=== PATIENT | male | born 1950 | race Caucasian/White ===

== ENCOUNTER → 2017-12-09 | Outpatient (CLI) | payer OTHER, MEDICARE | END | disposition home or self-care (01) | LOC: C.RDSM 15:21 | PROVIDERS: ATTEND Orthopaedic Surgery | DX: M25.572 Pain in left ankle and joints of left foot (principal) ==

== ENCOUNTER 2021-09-26 18:08 | Inpatient (IN) ==
--- NOTE | 2021-09-26 18:21 | ED Telehealth Note ---
Telehealth Telehealth Options: 2-way audio and video For the duration of the visit, provider was performing the assessment from: A different facility than the patient After establishing a telemedicine visit, patient was: Patient was verified with two unique identifiers and Gave permission to continue telehealth session Total Time Spent (minutes): 11 Impression & Plan Weakness, Slurred speech Note/Exam/Outcome Date of Service September 26, 2021 ED Telehealth Outcome Referred to ED for in person visit ED Visit Note Of note, I did not speak with or visualize the patient himself for this telehealth visit. I spoke with his Lisa who would like to discuss some of her concerns. She notes that this 71-year-old male patient with significant past medical history of hypertension, diabetes, gross disease has been taking cyclosporine for a rash, prescribed by his siebel developer. He has been lethargic and very fatigued for the past several days, but at 5 PM when he awoke from a nap this evening, the patient was having difficulty walking, falling backwards, difficulty with his balance and holding onto the wall. She got his cane and was able to assist him to the kitchen where she fed him some crackers due to his history of diabetes. She then got him to the recliner and he indicated that he wanted to go back to bed. He was having severe difficulty with the steps. At this time, she noted some slurred speech. She did take his vital signs and noted his O2 saturation to be 95% on room air, heart rate of 82 bpm, blood pressure 174 systolic, blood sugar 188. She does note that he had a fall 3 weeks ago while trying to get up from the couch to go to dinner. She found him lying on the floor. He did not strike his head at that time to her knowledge. He was contacted by dermatology yesterday with some labs indicating "severe low sodium". The patient was not evaluated at that time or referred for further management of the hyponatremia. I advised the patient's that I do recommend he come to the emergency department for further evaluation of his illness and management of the hyponatremia. I did recommend he come by ambulance due to safety concerns and the ability to start a work-up and have a medical evaluation completed somewhat sooner. The patient's agreed. She indicates she will contact the ambulance for transport to the emergency department. I did notify the charge nurse of this pending referral to the ED via EMS. Past Med/Surg History Medical History Diabetes Luis Miguel's disease Hypertension Social History Current Living Situation: Family Discharge Plan Visit Data Chief Complaint: Telehealth Stated Complaint: REDUCED BALANCE, LIGHT HEADED, NEW MEDS? ED Provider: IVAN,ED Discharge Problem: Weakness, Slurred speech Patient Disposition: Still a Patient Discharge Instructions Activity Restrictions/Additional Instructions: Call 911 and come to the ED for further evaluation of illness. Forms Stand Alone Forms: My [facility] Referrals Referrals: Richie Shanks, [Primary Care Provider] -
[2021-09-26] MEDS ORDERED: SODIUM CHLORIDE 0.9% 1000ML 500 ML IV ONE ×2 (20:50→21:22)
[2021-09-26 20:52] LABS: Basophils # (auto) 0.02 K/uL (0-0.2); Basophils % (auto) 0.3 %; Eosinophils % (auto) 1.4 %; Hematocrit (blood only) 38.9 % (42-52); Hemoglobin 14.3 g/dL (14.0-18.0); Immature Granulocytes # (auto) 0.02 K/uL (0.00-0.02); Immature Granulocytes % (auto) 0.3 %; Lymphocytes # (auto) 2.05 K/uL (1.2-3.4); Lymphocytes % (auto) 27.9 %; Mean Corpuscular Hemoglobin 35.8 pg (25-34); Mean Corpuscular Hgb Conc 36.8 g/dL (32-36); Mean Corpuscular Volume 97.3 fL (80-100); Mean Platelet Volume 7.7 fL (7.4-10.4); Monocytes # (auto) 0.86 K/uL (0.11-0.59); Monocytes % (auto) 11.7 %; Neutrophils # (auto) 4.31 K/uL (1.4-6.5); Neutrophils % (auto) 58.4 %; Platelet Count 262 K/uL (130-400); RDW Coefficient of Variation 11.9 % (11.5-14.5); RDW Standard Deviation 42.5 fL (36.4-46.3); White Blood Count 7.36 K/uL (4.8-10.8)
--- NOTE | 2021-09-26 20:54 | Emergency Department Note ---
Impression & Plan Weakness, Slurred speech, Acute hyponatremia, Confusion ED Provider Note NAME: ERIC BUSTOS AGE: 71 SEX: M : 1950 ARRIVES VIA: Walk-In INFORMANT: [Patient][] ED PROVIDER(S): [Herb Hernandez MD] CHIEF COMPLAINT: Dizziness, weakness HISTORY OF PRESENT ILLNESS: The patient is a 71-year-old male who has had a few months of worsening difficulty with balance. Today, things were quite a bit worse and he was slurring his words. He was having a hard time getting around. The patient had a telehealth visit here through the ED and was referred to the ED as a stroke work-up was felt warranted. The patient denies any fever. No cough or cold or congestion. No chest pain or abdominal pain. No one-sided weakness. He does urinate a lot but this is typical, no burning to urinate, no diarrhea, no vomiting. Patient denies any headache. He did start a cyclosporine a week ago but, otherwise, his meds have been the same. Of note, patient was told that his sodium was low, he is not sure how low but, he does not think this has been an issue for him before. REVIEW OF SYSTEMS: See HPI for pertinent positives and negatives. A total of ten systems were reviewed and were otherwise negative. PMHx/PSHx: See Below SOCIAL HISTORY: See Below. PHYSICAL EXAM: GENERAL: Patient is in no acute distress. HEENT: No acute trauma, normocephalic atraumatic, mucous membranes moist, no nasal congestion, no scleral icterus. NECK: No stridor, no adenopathy, no meningismus, trachea is midline. LUNGS: Clear to auscultation bilaterally, no wheeze, no rhonchi, breath sounds equal. HEART: Without murmurs gallops or rubs, regular rate and rhythm. ABDOMEN: Soft, nontender, bowel sounds positive, no hernias, no peritonitis. EXTREMITIES: No cyanosis, mild bilateral pedal edema, full range of motion of all the joints without pain or difficulty, no signs for acute trauma. NEUROLOGIC: Oriented x 3, no acute motor or sensory deficits, no focal weakness. Slightly slow to respond to questioning but does answer questions appropriately. No extremity drift or cerebellar dysfunction. No facial droop or speech slur. There is a little extremity tremor noted. SKIN: No rash, no jaundice, no diaphoresis. DIFFERENTIAL DIAGNOSIS: Infection, dehydration, metabolic abnormality, hypo/hyperglycemia, COVID-19, electrolyte disturbance, anemia, hypoxia, cardiac sources, intracerebral event, toxicologic issues, stroke, TIA, as well as other pathologies. EMERGENCY DEPARTMENT COURSE/PROCEDURES: ECG: Indication was weakness. The ECG shows a normal sinus rhythm with a rate of 83. There is a right bundle branch block seen. There is no ST elevation, no PVCs. The QTc is 462. Continuous Cardiac Monitoring: An order was placed for continuous cardiac monitoring. The monitor shows a rate of 92 with normal sinus rhythm. Critical Care Note: I have personally spent 47 minutes of critical care time in the direct management of this patient. This includes bedside care, interpretation of diagnostic studies, and testing, discussion with consultants, patient, and family members, and other required patient management activities. This 47 minutes is in excess of all separately billable procedures. MEDICAL DECISION MAKING: There is no leukocytosis or concerning anemia. There is a normal platelet count. No coagulopathy. Sodium was critically low at 119. No renal failure. Magnesium somewhat low at 1.6. No worrisome liver enzyme elevation. The patient appeared to be in a euthyroid state. Urinalysis does not show infection. Covid testing was negative. Chest film does not show pneumonia or CHF. Brain CT showed no acute bleed or mass-effect. CT angio of the head and neck were performed, there was no clot or stenosis. On my exam, the patient was a little bit slow to respond but there was no speech slur or focal neurologic deficit. The patient received IV saline, 1 L. He was given IV magnesium. I suspect the patient's weakness, lethargy, slurred speech is from his hyponatremia. The cause for the hyponatremia is not clear. Further work-up, further care in the hospital is warranted. I spoke with the patient and immigration case manager. The on-call hospitalist was consulted. Past Med/Surg History Medical History Diabetes Luis Miguel's disease Hypertension Social History Smoking Status: Current every day smoker Tobacco Type: Cigarettes Current Living Situation: Family Feels Safe at Home: Yes Home Meds Home Medications Medication Instructions Recorded Confirmed amlodipine 5 mg tablet 5 mg PO DAILY 09/26/21 09/26/21 cyclosporine modified 50 mg capsule 100 mg PO TID 09/26/21 09/26/21 hydrochlorothiazide 25 mg tablet 25 mg PO DAILY 09/26/21 09/26/21 losartan 100 mg tablet 100 mg PO DAILY 09/26/21 09/26/21 metformin 1,000 mg tablet 1,000 mg PO BID 09/26/21 09/26/21 triamcinolone acetonide 0.1 % 0.1 applic TOPICAL BID 09/26/21 09/26/21 topical cream Results & Data (ED) Vital Signs Vital Signs - 24 hr 09/26/21 18:58 09/26/21 20:02 09/26/21 22:00 Temperature 36.7 C Temperature Source Oral Pulse Rate 92 H Pulse Rate [Right Finger] 92 H 83 Pulse Rhythm [Right Finger] Regular Regular Pulse Strength [Right Finger] Normal Normal Respiratory Rate 18 18 16 Respiratory Effort / Characteristics Non-Labored Spontaneous Non-Labored Non-Labored Respiratory Depth Normal Normal Normal Respiratory Pattern Regular Regular Regular Blood Pressure 146/76 H Blood Pressure [Right Arm] 158/93 H 157/88 H Blood Pressure Mean 99 Blood Pressure Mean [Right Arm] 114 111 Blood Pressure Position Sitting Blood Pressure Position [Right Arm] Lying Lying Pulse Oximetry 98 97 97 Oxygen Delivery Method Room Air Room Air Room Air Sepsis Recent Fever Within 48 Hours No Sepsis New/Unexplained Change in Mental Status No Sepsis Action Taken by Nursing No Action Required Home Medications Current Medication List: was personally reviewed by me Laboratory Data Attestation: I reviewed the patient's lab results. Result diagrams: 09/26/21 20:40 09/26/21 20:40 Lab Results 09/26/21 09/26/21 09/26/21 Range/Units 20:40 20:40 20:40 WBC 7.36 (4.8-10.8) K/uL RBC 4.00 L (4.7-6.1) M/uL Hgb 14.3 (14.0-18.0) g/dL Hct 38.9 L (42-52) % MCV 97.3 (80-100) fL MCH 35.8 H (25-34) pg MCHC 36.8 H (32-36) g/dL RDW Std Deviation 42.5 (36.4-46.3) fL RDW Coeff of Scott 11.9 (11.5-14.5) % Plt Count 262 (130-400) K/uL MPV 7.7 (7.4-10.4) fL Immature Gran % (Auto) 0.3 % Neut % (Auto) 58.4 % Lymph % (Auto) 27.9 % Coffee % (Auto) 11.7 % Eos % (Auto) 1.4 % Baso % (Auto) 0.3 % Neut # (Auto) 4.31 (1.4-6.5) K/uL Lymph # (Auto) 2.05 (1.2-3.4) K/uL Coffee # (Auto) 0.86 H (0.11-0.59) K/uL Eos # (Auto) 0.10 (0-0.5) K/uL Baso # (Auto) 0.02 (0-0.2) K/uL Immature Gran # (Auto) 0.02 (0.00-0.02) K/uL PT 9.4 (9.0-12.0) Seconds INR 0.9 (0.9-1.1) APTT 27.3 (21.0-31.0) Seconds PTT Ratio 1.0 Sodium 119 L* (136-145) mmol/L Potassium 3.7 (3.5-5.1) mmol/L Chloride 84 L (98-107) mmol/L Carbon Dioxide 21 (21-32) mmol/L Anion Gap 14.0 H (3-11) BUN 8 (7-18) mg/dl Creatinine 0.67 (0.6-1.4) mg/dl Est Cr Clr Drug Dosing 122.0 ml/min Est GFR ( Amer) 111.3 ml/min Est GFR (Non-Af Amer) 96.0 ml/min BUN/Creatinine Ratio 11.8 (10-20) Glucose 134 H (70-99) mg/dl Calcium 8.6 (8.5-10.1) mg/dl Magnesium 1.6 L (1.8-2.4) mg/dl Total Bilirubin 0.8 (0.2-1) mg/dl AST 20 (15-37) U/L ALT 44 (12-78) U/L Alkaline Phosphatase 67 (45-117) U/L Troponin I < 0.015 (0-0.045) ng/ml Total Protein 8.0 (6.4-8.2) gm/dl Albumin 3.9 (3.4-5.0) gm/dl Globulin 4.1 H (2.5-4.0) gm/dl Albumin/Globulin Ratio 0.9 (0.9-2) TSH 0.554 (0.300-4.500) uIu/ml Urine Color Urine Appearance (Clear) Urine pH (4.5-7.5) Ur Specific Sagle (1.000-1.030) Urine Protein (Negative) Urine Glucose (UA) (Negative) Urine Ketones (Negative) Urine Blood (Negative) Urine Nitrite (Negative) Urine Bilirubin (Negative) Urine Urobilinogen (Negative) Ur Leukocyte Esterase (Negative) SARS-CoV-2, RNA, NAAT (NEGATIVE) Blood Type Antibody Screen 09/26/21 09/26/21 09/26/21 Range/Units 21:00 Unknown Unknown WBC (4.8-10.8) K/uL RBC (4.7-6.1) M/uL Hgb (14.0-18.0) g/dL Hct (42-52) % MCV (80-100) fL MCH (25-34) pg MCHC (32-36) g/dL RDW Std Deviation (36.4-46.3) fL RDW Coeff of Scott (11.5-14.5) % Plt Count (130-400) K/uL MPV (7.4-10.4) fL Immature Gran % (Auto) % Neut % (Auto) % Lymph % (Auto) % Coffee % (Auto) % Eos % (Auto) % Baso % (Auto) % Neut # (Auto) (1.4-6.5) K/uL Lymph # (Auto) (1.2-3.4) K/uL Coffee # (Auto) (0.11-0.59) K/uL Eos # (Auto) (0-0.5) K/uL Baso # (Auto) (0-0.2) K/uL Immature Gran # (Auto) (0.00-0.02) K/uL PT (9.0-12.0) Seconds INR (0.9-1.1) APTT (21.0-31.0) Seconds PTT Ratio Sodium (136-145) mmol/L Potassium (3.5-5.1) mmol/L Chloride (98-107) mmol/L Carbon Dioxide (21-32) mmol/L Anion Gap (3-11) BUN (7-18) mg/dl Creatinine (0.6-1.4) mg/dl Est Cr Clr Drug Dosing ml/min Est GFR ( Amer) ml/min Est GFR (Non-Af Amer) ml/min BUN/Creatinine Ratio (10-20) Glucose (70-99) mg/dl Calcium (8.5-10.1) mg/dl Magnesium (1.8-2.4) mg/dl Total Bilirubin (0.2-1) mg/dl AST (15-37) U/L ALT (12-78) U/L Alkaline Phosphatase (45-117) U/L Troponin I (0-0.045) ng/ml Total Protein (6.4-8.2) gm/dl Albumin (3.4-5.0) gm/dl Globulin (2.5-4.0) gm/dl Albumin/Globulin Ratio (0.9-2) TSH (0.300-4.500) uIu/ml Urine Color Yellow Urine Appearance Clear (Clear) Urine pH 7.0 (4.5-7.5) Ur Specific Sagle 1.014 (1.000-1.030) Urine Protein Negative (Negative) Urine Glucose (UA) Trace H (Negative) Urine Ketones Negative (Negative) Urine Blood Negative (Negative) Urine Nitrite Negative (Negative) Urine Bilirubin Negative (Negative) Urine Urobilinogen Negative (Negative) Ur Leukocyte Esterase Negative (Negative) SARS-CoV-2, RNA, NAAT NEGATIVE (NEGATIVE) Blood Type O Positive Antibody Screen NEGATIVE Administered Medications Discontinued Medications Sodium Chloride (Nss 1000ml) 500 mls @ 999 mls/hr IV .Q31M ONE Stop: 09/26/21 21:20 Last Infusion: 09/26/21 22:07 Dose: 0 mls/hr Documented by: [id number] Admin: 09/26/21 21:19 Dose: 999 mls/hr Documented by: [id number] Magnesium Sulfate/Dextrose (Magnesium Sulfate / D5w) 1 gm in 100 mls @ 100 mls/hr IV NOW STA Stop: 09/26/21 22:21 Last Admin: 09/26/21 22:20 Dose: 100 mls/hr Documented by: [id number] Sodium Chloride (Nss 1000ml) 500 mls @ 999 mls/hr IV .Q31M ONE Stop: 09/26/21 21:52 Last Infusion: 09/26/21 23:04 Dose: 0 mls/hr Documented by: [id number] Admin: 09/26/21 22:20 Dose: 999 mls/hr Documented by: [id number] Ioversol (Optiray 320 125ml) 119 ml IV ONCE ONE Stop: 09/26/21 21:45 Last Admin: 09/26/21 21:52 Dose: 119 ml Documented by: [id number] Imaging Data Radiologist's Impression: Chest X-Ray 09/26/21 19:02 XR chest 1V portable HISTORY: Stroke Like Symptoms COMPARISON: None. FINDINGS: No focal lung consolidations to suggest pneumonia. No evidence for pulmonary edema. The cardiac silhouette is top normal in size. No pleural effusions. No pneumothorax. IMPRESSION: No acute process. ACT 112: Negative or not required by law. Electronically signed by: Aleks Sanders M.D. 09/26/2021 9:[address]: There is no acute bleed or mass-effect. No sinusitis. CT angio of the head and neck were performed: There was no aneurysm or clot, no significant stenosis. Discharge Plan Visit Data Chief Complaint: Dizziness Stated Complaint: REDUCED BALANCE, LIGHT HEADED, NEW MEDS? ED Provider: Herb Hernandez Discharge Problem: Weakness, Slurred speech, Acute hyponatremia, Confusion Patient Disposition: Admitted As Inpatient Condition: Fair Discharge Instructions Activity Restrictions/Additional Instructions: Call 911 and come to the ED for further evaluation of illness. Forms Stand Alone Forms: My [facility] Prescriptions Prescriptions: No Action metformin 1,000 mg tablet 1,000 mg PO BID RF: 0 cyclosporine modified 50 mg capsule 100 mg PO TID RF: 0 amlodipine 5 mg tablet 5 mg PO DAILY RF: 0 triamcinolone acetonide 0.1 % cream 0.1 applic TOPICAL BID RF: 0 hydrochlorothiazide 25 mg tablet 25 mg PO DAILY RF: 0 losartan 100 mg tablet 100 mg PO DAILY RF: 0 Referrals Referrals: Richie Shanks, DO [Primary Care Provider] -
[2021-09-26 21:05] LABS: INR 0.9 (0.9-1.1); Partial Thromboplastin Time 27.3 Seconds (21.0-31.0); Prothrombin Time 9.4 Seconds (9.0-12.0)
--- NOTE | 2021-09-26 21:07 | XRay Report ---
XR chest 1V portable HISTORY: Stroke Like Symptoms COMPARISON: None. FINDINGS: No focal lung consolidations to suggest pneumonia. No evidence for pulmonary edema. The car diac silhouette is top normal in size. No pleural effusions. No pneumothorax. IMPRESSION: No acute process. ACT 112: Negative or not required by law. Electronically signed by: Aleks Sanders M.D. 09/26/2021 9:06 PM
[2021-09-26 21:18] LABS: Alanine Aminotransferase 44 U/L (12-78); Albumin Level 3.9 gm/dl (3.4-5.0); Aspartate Aminotransferase 20 U/L (15-37); BUN Creatinine Ratio 11.8 (10-20); Blood Urea Nitrogen 8 mg/dl (7-18); Calcium 8.6 mg/dl (8.5-10.1); Carbon Dioxide 21 mmol/L (21-32); Chloride 84 mmol/L (98-107); Est GFR (African American) 111.3 ml/min; Glucose 134 mg/dl (70-99); Magnesium 1.6 mg/dl (1.8-2.4); Potassium 3.7 mmol/L (3.5-5.1); Sodium 119 mmol/L (136-145)
[2021-09-26] MEDS ORDERED: MAGNESIUM SULFATE / D5W 1 GM/100 ML BAG IV STA (21:22)
[2021-09-26 21:23] LABS: Albumin Globulin Ratio 0.9 (0.9-2); Alkaline Phosphatase 67 U/L (45-117); Bilirubin,Total 0.8 mg/dl (0.2-1); Globulin 4.1 gm/dl (2.5-4.0); Thyroid Stimulating Hormone 0.554 uIu/ml (0.300-4.500); Troponin I < 0.015 ng/ml (0-0.045)
[2021-09-26] MEDS ORDERED: OPTIRAY 320 125ml IV ONE (21:44)
[2021-09-26 22:36] LABS: Appearance Urine Clear (Clear); Bilirubin Urine Negative (Negative); Blood Urine Negative (Negative); Color Urine Yellow; Glucose Urine UA Trace (Negative); Ketones Urine Negative (Negative); Leukocyte Esterase Urine Negative (Negative); Nitrite Urine Negative (Negative); Protein Urine Negative (Negative); Specific Gravity Urine 1.014 (1.000-1.030); Urobilinogen Urine Negative (Negative)
[2021-09-27] MEDS ORDERED: ACETAMINOPHEN 325 MG TAB PO PRN (00:27)
[2021-09-27] MEDS ORDERED: NITROGLYCERIN SL 0.4 MG/TAB TAB SL PRN (00:27)
[2021-09-27] MEDS ORDERED: PHARMACIST DISCHARGE MED REC CONSULT PRN (00:27)
[2021-09-27] MEDS ORDERED: POLYETHYLENE (MIRALAX) 17 GM PACK PO PRN (00:27)
--- NOTE | 2021-09-27 00:41 | History and Physical Report ---
DATE OF ADMISSION: 09/26/2021. CHIEF COMPLAINT: Imbalance and questionable slurred speech and hyponatremia. HISTORY OF PRESENT ILLNESS: A 71-year-old male with past medical history significant for diabetes, hypertension, obstructive sleep apnea, history of ascending aortic enlargement, history of squamous cell carcinoma, history of malignant melanoma of skin, who presents with imbalance and questionable slurred speech, and found to have hyponatremia. The patient seems to be having atopic dermatitis and recently following with dermatology. He is on triamcinolone cream and also was recently started on cyclosporine tablets. Dermatology checked his labs and found to be a sodium of 124 on 09/24/2021 and notified to the patient. The patient was brought in here by because the last couple of weeks he is having some imbalance, but today it got worse and thought he might have some slurred speech. In the ER, initial imaging studies were unremarkable, but his sodium came down to 119. His sodium was 127 on 09/05/2021. The patient seems to be on hydrochlorothiazide. Currently, he is alert and oriented x3. Denies any headache. No blurred visions, no nausea, no vomiting, no chest pain or shortness of breath, no cough. His itching is better. No diarrhea, no constipation. Normal bladder movements. He is hemodynamically stable. Received fluids in the ER. ALLERGIES: No known drug allergies. PAST MEDICAL HISTORY: As mentioned above. PAST SURGICAL HISTORY: Excision of melanoma, Mohs surgery, tonsillectomy and adenoidectomy, 6 surgeries for left ankle fracture. MEDICATIONS: The patient is on amlodipine 5 mg p.o. daily, cyclosporine 100 mg p.o. t.i.d., hydrochlorothiazide 25 mg p.o. daily, losartan 100 mg p.o. daily, metformin 1000 mg p.o. b.i.d., triamcinolone 0.1% application topical b.i.d. FAMILY HISTORY: Significant for father had lung cancer, mother has breast cancer. SOCIAL HISTORY: . Smokes half pack a day, drinks 12 ounce of beer daily. No drug use. REVIEW OF SYSTEMS: As per HPI. Rest of the review of systems is negative. PHYSICAL EXAMINATION: GENERAL: The patient is of moderate build, not in acute distress. VITAL SIGNS: Temperature 36.7, pulse 83, respiratory rate 16, blood pressure 157/88, oxygen 97% on room air. HEENT: Pupils equal, round, and reactive to light. Oral mucosa moist. NECK: No JVD, no neck masses. CARDIOVASCULAR: S1 and S2 heard. Regular rate and rhythm. No murmur, no gallop. RESPIRATORY SYSTEM: Normal AP diameter. No accessory muscle use. No wheezing, no crackles. ABDOMEN: Soft, bowel sounds present, nontender, no distention. CENTRAL NERVOUS SYSTEM: Alert and oriented x3. No facial droop. Speech is clear. Power 5/5 in all extremities. Sensation is intact. No pronator drift. Coordination of movements normal. EXTREMITIES: Mild pedal edema present, no erythema seen. LABORATORY DATA: WBC 7.6, hemoglobin 14.3, hematocrit 38.9, platelets 262. PT 9.4, INR 0.9, APTT 27.3. Sodium 119, potassium 3.7, chloride 84, bicarbonate 21, BUN 8, creatinine 0.6, serum glucose 134, calcium 8.6, magnesium 1.6, total bilirubin 0.8, AST 20, ALT 44, alkaline phosphatase 67. Troponin I less than 0.015. TSH 0.5. Urinalysis: Trace glucose. SARS-CoV-2 PCR negative. IMAGING DATA: CTA of the head and neck unremarkable. Head CT unremarkable. Chest x-ray, no acute findings. EKG: Normal sinus rhythm at a rate of 82. Right bundle-branch block. ASSESSMENT AND PLAN: This 71-year-old male presents with stroke-like symptoms and also found to have hyponatremia. 1. Stroke-like symptoms with imbalance going on for the last couple of weeks and today questionable slurred speech. Initial workup was negative. Currently, the patient's speech is clear, alert and oriented. We will do the full stroke workup with MRI scan and echo. Neurology consult in a.m. PT, OT and speech consult. Will start him on aspirin. Closely monitor in the tele floor. 2. Hyponatremia, could be contributing to his symptoms. His sodium was 127 on 09/05/2021 and 124 on 09/24/2021 and today is 119. He was recently started on cyclosporine for his atopic dermatitis by dermatology. Received 1 liter of fluids in the ER. Will check the BMP now and also q. 4 hours. Check urine osmolality, serum osmolality, and urine sodium levels. repeat labs showed Na 121. Ordered 100ml of hypertonic saline. Consult nephrology and further fluids as per nephrology. Closely monitor in the tele floor. 3. Hypertension: Continues amlodipine, losartan withholding parameters. Holding hydrochlorothiazide for hyponatremia. 4. Diabetes: holding his Metformin, placed on insulin sliding scale. 5. History of atopic dermatitis: Currently is continuing his triamcinolone and cyclosporin. Follows with dermatology. 6. Deep venous thrombosis prophylaxis: We will place him on sequential compression devices. DISPOSITION: Closely monitor in the tele floor. Level 1 full code. Expect to discharge home and follow with family doctor. Job ID: [id number] [facility]
[2021-09-27 00:59] LABS: BUN Creatinine Ratio 11.2 (10-20); Calcium 7.7 mg/dl (8.5-10.1); Creatinine Clr Calc Pharmacy 148.6 ml/min; Est GFR (African American) 120.7 ml/min; Est GFR (Non-African American) 104.1 ml/min; Potassium 3.6 mmol/L (3.5-5.1)
[2021-09-27] MEDS ORDERED: GLUCAGON FOR INJ 1 MG VIAL IM PRN (01:00)
[2021-09-27] MEDS ORDERED: CARBOHYDRATES FOR HYPOGLYCEMIA PO PRN (01:00)
[2021-09-27] MEDS ORDERED: GLUCOSE 40% GEL 15 GM TUBE PO PRN (01:00)
[2021-09-27] MEDS ORDERED: DEXTROSE 50% 50 ML SYRINGE IV PRN (01:00)
[2021-09-27] MEDS ORDERED: GLUCOSE 10 TABS/TUBE PO PRN (01:00)
[2021-09-27 02:47] LABS: BUN Creatinine Ratio 13.1 (10-20); Calcium 8.9 mg/dl (8.5-10.1); Creatinine Clr Calc Pharmacy 143.4 ml/min; Est GFR (African American) 118.9 ml/min; Est GFR (Non-African American) 102.6 ml/min
[2021-09-27] MEDS ORDERED: SODIUM CHLORIDE 3 % 100mL BOLUS (from 3% 500mL bag) IV ONE (03:30)
[2021-09-27 05:03] LABS: Basophils # (auto) 0.01 K/uL (0-0.2); Basophils % (auto) 0.1 %; Eosinophils % (auto) 1.4 %; Hematocrit (blood only) 37.1 % (42-52); Hemoglobin 13.5 g/dL (14.0-18.0); Immature Granulocytes # (auto) 0.03 K/uL (0.00-0.02); Immature Granulocytes % (auto) 0.4 %; Lymphocytes # (auto) 1.68 K/uL (1.2-3.4); Lymphocytes % (auto) 22.9 %; Mean Corpuscular Hemoglobin 35.2 pg (25-34); Mean Corpuscular Hgb Conc 36.4 g/dL (32-36); Mean Corpuscular Volume 96.6 fL (80-100); Mean Platelet Volume 7.3 fL (7.4-10.4); Monocytes # (auto) 1.22 K/uL (0.11-0.59); Monocytes % (auto) 16.6 %; Neutrophils % (auto) 58.6 %; Platelet Count 269 K/uL (130-400); RDW Standard Deviation 42.6 fL (36.4-46.3); Red Blood Count 3.84 M/uL (4.7-6.1); White Blood Count 7.34 K/uL (4.8-10.8)
[2021-09-27 05:32] LABS: BUN Creatinine Ratio 11.7 (10-20); Calcium 8.8 mg/dl (8.5-10.1); Creatinine Clr Calc Pharmacy 127.7 ml/min; Est GFR (African American) 113.4 ml/min; Est GFR (Non-African American) 97.8 ml/min; Magnesium 1.6 mg/dl (1.8-2.4); Potassium 3.9 mmol/L (3.5-5.1)
--- NOTE | 2021-09-27 07:35 | CT Scan Report ---
HEAD CT NONCONTRAST CT DOSE: HISTORY: Loss of balance. Stroke Like Symptoms TECHNIQUE: Multiaxial CT images of the head were performed without the use of intravenous contrast. A utomated exposure control was utilized for this study. A dose lowering technique was utilized adheri ng to the principles of ALARA. Comparison: None. Findings: The paranasal sinuses and mastoid air cells are clear. The calvarium and skull base are int act. There is no mass, hematoma, midline shift, acute infarct. White matter hypodensity is nonspecifi c but suggestive of microvascular ischemic change. The ventricles and sulci demonstrate mild age-rela mihir involutional changes. Impression: No acute intracranial abnormality. Atrophy and microvascular ischemic changes. ACT 112: Negative or not required by law. Electronically signed by: Aleks Sanders M.D. 09/27/2021 7:34 AM
--- NOTE | 2021-09-27 07:39 | CT Scan Report ---
HEAD & NECK CTA HISTORY: Loss of balance. Stroke Like Symptoms TECHNIQUE: Multiaxial CT images of the head were performed following the intravenous administration o f contrast to evaluate the major cerebral vessels. Multiaxial CT images of the neck were also perform ed following the intravenous administration of contrast to evaluate the major cervical vessels. Maxim um intensity projection images were also obtained. A dose lowering technique was utilized adhering to the principles of ALARA. COMPARISON: None. FINDINGS: There is no mass, hematoma, midline shift, or acute infarct. Visualized intracranial internal carotid arteries, distal vertebral arteries, and basilar artery are widely patent. There is no significant s tenosis, occlusion, or aneurysm seen within the bilateral ACAs, MCAs, or weave room supervisor. The aortic arch and proximal great vessels are widely patent. There is no significant stenosis, occ lusion, or dissection identified within the bilateral common carotid, internal carotid, or vertebral arteries. IMPRESSION: 1. No significant stenosis, occlusion, or aneurysm within the pauma of Conner. 2. No significant stenosis, occlusion, or dissection identified within the carotid or vertebral arter ies. ACT 112: Negative or not required by law. Electronically signed by: Aleks Sanders M.D. 09/27/2021 7:38 AM
--- NOTE | 2021-09-27 07:44 | CT Scan Report ---
HEAD & NECK CTA HISTORY: Loss of balance. Stroke Like Symptoms TECHNIQUE: Multiaxial CT images of the head were performed following the intravenous administration o f contrast to evaluate the major cerebral vessels. Multiaxial CT images of the neck were also perform ed following the intravenous administration of contrast to evaluate the major cervical vessels. Maxim um intensity projection images were also obtained. A dose lowering technique was utilized adhering to the principles of ALARA. COMPARISON: None. FINDINGS: There is no mass, hematoma, midline shift, or acute infarct. Visualized intracranial internal carotid arteries, distal vertebral arteries, and basilar artery are widely patent. There is no significant s tenosis, occlusion, or aneurysm seen within the bilateral ACAs, MCAs, or survey workers supervisor. The aortic arch and proximal great vessels are widely patent. There is no significant stenosis, occ lusion, or dissection identified within the bilateral common carotid, internal carotid, or vertebral arteries. IMPRESSION: 1. No significant stenosis, occlusion, or aneurysm within the [facility] [facility] [place]. 2. No significant stenosis, occlusion, or dissection identified within the carotid or vertebral arter ies. ACT 112: Negative or not required by law. ACT 112: Negative or not required by law. Electronically signed by: Aleks Sanders M.D. 09/27/2021 7:43 AM
[2021-09-27] MEDS: cycloSPORINE 100 MG CAP PO SCH ×3 (08:58→20:21)
[2021-09-27] MEDS: INSULIN ASPART 100 UNITS/ML 3 ML PEN SC SCH ×4 (08:58→20:46)
[2021-09-27] MEDS: LOSARTAN POTASSIUM 50 MG TAB PO SCH (08:58)
[2021-09-27] MEDS: amLODIPine BESYLATE 5 MG TAB PO SCH (08:58)
[2021-09-27] MEDS: TRIAMCINOLONE ACET 0.1% CR 15 GM TUBE TOP SCH ×2 (08:58→20:21)
--- NOTE | 2021-09-27 10:23 | Consultation Report ---
NEUROLOGY CONSULTATION NOTE DATE OF CONSULTATION: 09/27/2021 CHIEF COMPLAINT: Ataxia, dysarthria, hyponatremia. HISTORY OF PRESENT ILLNESS: This is a 71-year-old male with history of diabetes, chronic alcohol use, hypertension, obstructive sleep apnea, and history of malignant melanoma, admitted from the Emergency Department yesterday for ataxia and questionable dysarthria as well as found to have hyponatremia. The patient follows with dermatology for dermatitis. He also follows with nephrology and was found to have a low sodium on 09/24/2021. Sodium level was 124. He was brought to the Emergency Department yesterday because over the last few weeks, he is having some balance difficulty. He got worse yesterday and was also noted to have possible slurred speech. He was evaluated in the Emergency Department with negative imaging and the sodium level came back at 119. His prior sodium on 09/05 was 127. The patient is on hydrochlorothiazide. He had no focal neurological deficits noted in the Emergency Department, he was hemodynamically stable. He received fluids in the ER. He was admitted for further workup of hyponatremia and stroke-like symptoms. ALLERGIES: No known drug allergies. PAST MEDICAL HISTORY: Diabetes, chronic alcohol use, hypertension, obstructive sleep apnea, ascending aortic enlargement, squamous cell carcinoma, malignant melanoma. PAST SURGICAL HISTORY: Excision of melanoma, tonsillectomy and adenoidectomy, 6 prior surgeries of the left ankle. HOME MEDICATIONS: Norvasc, cyclosporine, hydrochlorothiazide, losartan, metformin. FAMILY HISTORY: Father had lung cancer. Mother had breast cancer. SOCIAL HISTORY: He is . He smokes half a pack of cigarettes per day. He drinks 12 ounces of beer daily. No drug use. REVIEW OF SYSTEMS: As per HPI. All other review of systems is negative. PHYSICAL EXAMINATION: VITAL SIGNS: Blood pressure 165/68, pulse is 86, respiratory rate 18, temperature is 36.5 degrees Celsius, oxygen saturations 91% on room air. GENERAL: The patient appears his stated age, in no distress. HEENT: His head is normocephalic and atraumatic. Eyes are midline. Normal conjunctivae. NECK: Supple. LUNGS: Normal respiratory effort. CARDIAC: Pulses are normal. ABDOMEN: Nondistended. SKIN: No skin rash. PSYCHIATRIC: Normal mood. NEUROLOGIC: He is awake, alert, oriented to person, place, and time. Comprehension is intact. His speech is clear. Pupils are symmetric. Extraocular muscles intact. Facial sensation intact. No facial asymmetry. Intact hearing. Palate is symmetric. Good shoulder shrug. Tongue is midline. Wide based ataxic gait. Able to stand with eyes close.. No ataxia with [id number] testing. Intention tremor bilateral. Intact to light touch in terms of sensation. Muscle tone is normal. No focal weakness. DIAGNOSTIC TESTING AND LABORATORY VALUES: WBC 7.34, hemoglobin 13.5, platelet count 269. INR 0.9. Sodium 121, although trended up to 123, potassium 3.9, chloride is 90, carbon dioxide 25, BUN is 7, creatinine 0.64, glucose 125. Hemoglobin A1c is pending. Magnesium 1.6. LDL cholesterol 43. Urinalysis showed trace glucose. No signs of infection. IMAGING: Head and neck CTA; no acute intracranial abnormality, cerebral atrophy and microvascular ischemic changes. No significant stenosis, occlusion or aneurysm within the [place]. No significant stenosis, occlusion or dissection within the carotid or vertebral arteries. ASSESSMENT AND PLAN: A 71-year-old male with a history of type 2 diabetes, hypertension and obstructive sleep apnea, presenting for progressive ataxia as well as possible dysarthria. Found to have hyponatremia, possibly due to hydrochlorothiazide use. Head and neck CTA reassuring. We would recommend normotension, blood pressure goal - systolic blood pressure less than 140, diastolic blood pressure less than 90. Agree with starting aspirin 81 mg daily. MRI brain reviewed and Negative for acute ischemic stroke. Ataxia likely could be multifactorial, although exacerbated by hyponatremia. Intention tremor and ataxic gait can be seen in chronic alcohol use. 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 Recommend avoiding alcohol and PT/OT as outpatient. Follow up with me in the spring for re-evaluation of gait. Job ID: [id number] [facility]
[2021-09-27 10:32] LABS: BUN Creatinine Ratio 14.7 (10-20); Est GFR (African American) 109.9 ml/min; Est GFR (Non-African American) 94.8 ml/min
[2021-09-27] MEDS ORDERED: GADOBUTROL 30ML VIAL IV ONE (10:54)
--- NOTE | 2021-09-27 11:14 | Magnetic Resonance Report ---
MRI OF THE BRAIN WITHOUT AND WITH IV CONTRAST CLINICAL HISTORY: Severe dizziness. Evaluate for cerebrovascular accident. COMPARISON STUDY: Head CT and CTA of the head September 26, 2021. TECHNIQUE: Utilizing a 1.5 Anyi magnet and dedicated coil, multiplanar, multiecho imaging of the br ain was performed pre and postcontrast administration. IV administration of 9.5 mL of Gadavist contr ast was uneventful. FINDINGS: There are no foci of restricted diffusion to suggest acute infarct. No acute intracranial h emorrhage, midline shift or mass effect is present. Ventricular system is unremarkable. Basilar ciste rns are patent. There are no extra-axial collections. No intracranial mass or pathologic enhancement is present. A 1.2 cm T2 hyperintense focus within left basal ganglia could reflect a prominent periva scular space or less likely old lacunar infarct. There is a 8 mm old lacunar infarct within the right cerebellar hemisphere. White matter T2 hyperintense foci suggest moderate small vessel disease. Ther e is mild atrophy. Calvarial signal is normal. There are suspected postoperative findings within the left frontal scalp. Orbits are unremarkable. There is no evidence for sinusitis. There is no mastoid fluid. IMPRESSION: 1. No acute intracranial findings. 2. No intracranial mass or pathologic enhancement. 3. 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 4. Moderate small vessel disease. ACT 112: Negative or not required by law. Electronically signed by: Adonis Finnegan M.D. 09/27/2021 11:12 AM
[2021-09-27] MEDS: ASPIRIN 81 MG ECTAB PO SCH (11:29)
--- NOTE | 2021-09-27 11:36 | Nephrology Consultation ---
Date of Consultation September 27, 2021 Assessment & Plan (1) Chronic hyponatremia: Hyponatremia present since at least April 2020 with serum sodium generally in the high 120s. Worsened recently : sodium 127 on September 05 and 124 on September 24; 119 on presentation. euvolemic hyponatremia > ? SIADH from thiazide or low solute diet w/ EtOH or ibuprofen or multifactorial -goal sNa is 128 by labs tomorrow List hydrochlorothiazide as a medical intolerance/allergy please We will give 10 mg IV Lasix x1 now and 20 mEq of potassium x1 now Started daily Mag-Ox Continue 1.2 L fluid limit for now and every 4 hours basic metabolic panel (2) Hypertension: Goal systolic pressure less than 140: He has generally been slightly hypertensive with systolics in the 150s and intermittent tachycardia in the 90s. -monitor for possible EtOH withdrawal -would keep on monitored bed -continue amlodipine and losartan current doses -could use hydralazine prn; he may also end up with standing lasix but none for now History of Present Illness Reason for Consultation: hyponatremia Requesting Physician: Dr Pena Attending Physician: Hugh Shukla MD History of Present Illness 71 y/o M whom I am asked to see for hyponatremia was admitted last evening for same and for evaluation of strokelike symptoms. His presenting sodium was 119 at 2099September 26. Sodium this morning is 124 at 10 AM He is 1.2 L negative overnight at least. He had 100 mL 3% saline overnight; hctz was held; also had 2 x 500 mL boluses NS. Past medical history includes chronic hyponatremia with sodium 127 on September 05 and 124 on September 24 as outpatient, hypertension on hydrochlorothiazide and losartan and amlodipine, sleep apnea, diabetes, malignant melanoma, active alcohol and tobacco use (2 cans of beer daily endorsed by patient and 1/2 pack/day cigarettes). He has atopic dermatitis and was recently started on cyclosporine. Remote L ankle fracture with 6 surgeries. He was evaluated by neurology who recommend systolic blood pressure target is less than 140; further evaluation pending MRI results but progressive ataxia and questionable dysarthria work-up so far reassuring and may be continued as outpatient He takes ibuprofen qhs for sleep. He has chronic ambulatory dysfunction d/t ankle surgery w/ chronic ankle pain > he uses a cane intermittently, no more than usual recently. however yesterday he became abruptly unsteady, needing to hold onto hand rails to move about his home and states that he does not believe he could walk today d/t lower extremity weakness. No sob, no n/v, no decreased po or diarrhea, no new/worrisome voiding issues, no falls. no confusion. he tells me he eats well but usually only evening meal. had been drinking lots of electrolyte rich drinks for days prior to admission per derm recs after they noted low Na. Home Medications Medication Instructions Recorded Confirmed Type amlodipine 5 mg tablet 5 mg PO DAILY 09/26/21 09/26/21 History cyclosporine modified 50 mg capsule 100 mg PO TID 09/26/21 09/26/21 History hydrochlorothiazide 25 mg tablet 25 mg PO DAILY 09/26/21 09/26/21 History losartan 100 mg tablet 100 mg PO DAILY 09/26/21 09/26/21 History metformin 1,000 mg tablet 1,000 mg PO BID 09/26/21 09/26/21 History triamcinolone acetonide 0.1 % 0.1 applic TOPICAL BID 09/26/21 09/26/21 History topical cream Patient History Medical History Chronic hyponatremia Diabetes Luis Miguel's disease Hypertension Malignant melanoma of skin 2005 Social History Smoking Status: Current every day smoker Tobacco Type: Cigarettes Hx Alcohol Use: Yes Alcohol type: beer Hx Substance Use: No Preferred Language: Japanese Communication Ability: Effective Tire Technician Required: No Beliefs That Will Affect Care: None Current Living Situation: Spouse Feels Safe at Home: Yes Safety Concerns: Feels Safe At This Time Assistive Devices: Cane and Glasses Review of Systems Review of Systems: All systems reviewed & are unremarkable except as noted in HPI & below Physical Exam Constitutional: well developed and well nourished Eyes: EOM intact bilaterally ENMT: Ears: no external ear abnormality Nose: no external nose abnormality Mouth: + dry oral mucous membranes Neck: no nuchal rigidity Respiratory: normal respiratory effort Auscultation: + diminished lung sounds Cardiovascular: Rate/Rhythm: regular rate and regular rhythm (frequent dropped beats w/ PVCs on monitor) Extremities: no edema Gastrointestinal (Abdomen): Inspection/Auscultation: normal bowel sounds Percussion/Palpation: abdomen soft; abdomen nontender Musculoskeletal: Extremities: strength 5/5 throughout (including BLE) Skin: no rashes, warm and dry + erythema (plethoric fascies) Neurologic: harding, fluent speech, no tremor Psychiatric: Orientation: alert and oriented x 3 Results & Data ([facility]) Vital Signs (Past 12 Hours) Vital Signs Temp Pulse Pulse Resp BP Pulse Ox 09/27/21 08:48 96 H 19 144/91 H 93 09/27/21 03:01 36.5 C 86 18 165/68 H 91 09/27/21 00:41 37.3 C 86 15 156/86 H 98 09/27/21 00:00 96 H 21 09/26/21 23:30 88 20 Laboratory Results 09/27/21 04:48 09/27/21 09:44 Serum OSMs 262, urine osms 210, random urine sodium 26 Urinalysis bland except for trace glucose Mag 1.6 Diagnostic Findings reveiwed
--- NOTE | 2021-09-27 12:27 | Electrocardiogram Report ---
Test Reason : Blood Pressure : / mmHG Vent. Rate : 083 BPM Atrial Rate : 083 BPM P-R Int : 162 ms QRS Dur : 146 ms QT Int : 394 ms P-R-T Axes : 060 057 036 degrees QTc Int : 462 ms Normal sinus rhythm Right bundle branch block Abnormal ECG No previous ECGs available Confirmed by Aldo Zaidi ([id number]) on 09/27/2021 12:27:23 PM Referred By: REFERRED SELF Confirmed By:Faustino Zaidi
[2021-09-27] MEDS ORDERED: POTASSIUM CHLORIDE CRTAB 20 MEQ TABCR PO ONE (13:07)
[2021-09-27] MEDS ORDERED: FUROSEMIDE 40 MG/4 ML VIAL IV ONE (13:15)
[2021-09-27 13:40] LABS: BUN Creatinine Ratio 13.8 (10-20); Calcium 9.1 mg/dl (8.5-10.1); Creatinine Clr Calc Pharmacy 91.5 ml/min; Est GFR (Non-African American) 85.4 ml/min; Potassium 4.2 mmol/L (3.5-5.1)
[2021-09-27] MEDS: MAGNESIUM OXIDE 400 MG TAB PO SCH (14:26)
[2021-09-27 16:41] LABS: BUN Creatinine Ratio 14.9 (10-20); Calcium 9.1 mg/dl (8.5-10.1); Creatinine Clr Calc Pharmacy 99.3 ml/min; Est GFR (African American) 102.4 ml/min; Est GFR (Non-African American) 88.3 ml/min
[2021-09-27] MEDS: NICOTINE 14 MG/24 HR PATCH TD SCH (20:29)
[2021-09-27 21:13] LABS: BUN Creatinine Ratio 17.6 (10-20); Calcium 8.3 mg/dl (8.5-10.1); Creatinine Clr Calc Pharmacy 86.6 ml/min; Est GFR (African American) 93.5 ml/min; Est GFR (Non-African American) 80.7 ml/min; Potassium 4.1 mmol/L (3.5-5.1)
[2021-09-28 06:56] LABS: Estimated Average Glucose 140 mg/dl; Hemoglobin A1C 6.5 % (4.5-5.6)
[2021-09-28] MEDS: NICOTINE 14 MG/24 HR PATCH TD SCH (08:07)
[2021-09-28] MEDS: LOSARTAN POTASSIUM 50 MG TAB PO SCH (08:07)
[2021-09-28] MEDS: amLODIPine BESYLATE 5 MG TAB PO SCH (08:07)
[2021-09-28] MEDS: ASPIRIN 81 MG ECTAB PO SCH (08:07)
[2021-09-28] MEDS: cycloSPORINE 100 MG CAP PO SCH ×3 (08:08→20:02)
[2021-09-28] MEDS: MAGNESIUM OXIDE 400 MG TAB PO SCH (08:08)
[2021-09-28] MEDS: INSULIN ASPART 100 UNITS/ML 3 ML PEN SC SCH ×4 (08:17→20:02)
[2021-09-28 08:30] LABS: Basophils # (auto) 0.04 K/uL (0-0.2); Basophils % (auto) 0.6 %; Eosinophils # (auto) 0.13 K/uL (0-0.5); Hematocrit (blood only) 40.7 % (42-52); Hemoglobin 14.2 g/dL (14.0-18.0); Immature Granulocytes # (auto) 0.01 K/uL (0.00-0.02); Immature Granulocytes % (auto) 0.2 %; Lymphocytes # (auto) 2.06 K/uL (1.2-3.4); Lymphocytes % (auto) 31.5 %; Mean Corpuscular Hgb Conc 34.9 g/dL (32-36); Mean Corpuscular Volume 100.2 fL (80-100); Mean Platelet Volume 7.7 fL (7.4-10.4); Monocytes # (auto) 1.34 K/uL (0.11-0.59); Monocytes % (auto) 20.5 %; Neutrophils # (auto) 2.95 K/uL (1.4-6.5); Neutrophils % (auto) 45.2 %; Platelet Count 299 K/uL (130-400); RDW Coefficient of Variation 12.2 % (11.5-14.5); RDW Standard Deviation 44.2 fL (36.4-46.3); Red Blood Count 4.06 M/uL (4.7-6.1); White Blood Count 6.53 K/uL (4.8-10.8)
[2021-09-28 09:04] LABS: BUN Creatinine Ratio 19.1 (10-20); Calcium 9.3 mg/dl (8.5-10.1); Creatinine Clr Calc Pharmacy 101.7 ml/min; Est GFR (African American) 103.4 ml/min; Est GFR (Non-African American) 89.2 ml/min
--- NOTE | 2021-09-28 10:24 | Hospitalist Progress Note ---
Date of Service September 27, 2021 Assessment & Plan (1) Slurred speech: (2) Acute hyponatremia: (3) Stroke-like symptoms: (4) Chronic hyponatremia: (5) Weakness: Plan: Pt is 71-year-old male who presents with stroke-like symptoms and also found to have hyponatremia. 1. Stroke-like symptoms with imbalance going on for the last couple of weeks and today questionable slurred speech. Initial workup was negative. On admission, the patient's speech is clear, py is alert and oriented. Stroke workup with MRI scan and echo ordered. CT head and CTA head and neck unremarkable. MRI brain - No acute intracranial findings. No intracranial mass or pathologic enhancement. 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 Moderate small vessel disease. Echo -LV is normal in size. LV systolic function is normal. EF 55 to 60%. LV wall motion is normal. RV systolic function is normal. LA size is normal. RA size is normal. The interatrial septum is intact with no evidence of ASD. No interatrial shunt noted. Neurology consulted speech consult. Will start him on aspirin. Closely monitor in the tele floor. PT, OT 2. Hyponatremia -could be contributing to his symptoms. His sodium was 127 on 09/05/2021 and 124 on 09/24/2021 and on admission is 119. He was recently started on cyclosporine for his atopic dermatitis by dermatology. Received 1 liter of fluids in the ER. Check the BMP now and also q. 4 hours. Check urine osmolality, serum osmolality, and urine sodium levels. repeat labs showed Na 121. Ordered 100ml of hypertonic saline. Consult nephrology and further fluids as per nephrology. Closely monitor in the tele floor. 3. Hypertension Continues amlodipine, losartan withholding parameters. Holding hydrochl orothiazide for hyponatremia. 4. Diabetes holding his Metformin, placed on insulin sliding scale. 5. History of atopic dermatitis Currently is continuing his triamcinolone and cyclosporin. Follows with dermatology. DVT ppx: SCDs DISPOSITION: tele floor.Expect to discharge home and follow with family doctor. Code: Full Admission and Anticipated Discharge Date Admission Date: September 26, 2021 Subjective Patient seen in follow-up of imbalance, strokelike symptoms, hyponatremia Currently he is sitting up in bed, in no acute distress. Patient's is at the bedside. Patient is alert oriented and he is able to answer questions appropriately. He was not out of bed yet. Denies headache, chest pain, shortness of breath, abdominal pain, nausea or vomiting His says pt had some imbalance issues for some time, however felt it got worse with possible slurred speech and therefore he was brought into the hospital. Now she reports he is much better than yesterday. Review of Systems Review of Systems: All systems reviewed & are unremarkable except as noted in Subjective Physical Exam Physical Exam: GENERAL: The patient is of moderate build, not in acute distress. HEENT: NC/AT. EOMI, PERRL. Oral mucosa moist. NECK: No JVD, no neck masses. CARDIOVASCULAR: S1 and S2 heard. Regular rate and rhythm. No murmur, no gallop. RESPIRATORY: Normal AP diameter. No accessory muscle use. No wheezing, no crackles. ABDOMEN: Soft, bowel sounds present, nontender, no distention. NEURO: Alert and oriented x3. No facial droop. Speech is clear. Power 5/5 in all extremities. Sensation is intact. No pronator drift. Coordination of movements normal. EXTREMITIES: Mild pedal edema present, no erythema seen. Results & Data Results & Data ([facility]) Vital Signs (Past 12 Hours) Vital Signs Temp Pulse Pulse Resp BP Pulse Ox 09/27/21 23:26 36.6 C 80 18 119/68 95
--- NOTE | 2021-09-28 10:25 | Hospitalist Progress Note ---
Date of Service September 28, 2021 Assessment & Plan (1) Slurred speech: (2) Acute hyponatremia: (3) Stroke-like symptoms: (4) Chronic hyponatremia: (5) Weakness: Plan: Pt is 71-year-old male who presents with stroke-like symptoms and also found to have hyponatremia. 1. Stroke-like symptoms with imbalance going on for the last couple of weeks and today questionable slurred speech. Initial workup was negative. On admission, the patient's speech is clear, pt is alert and oriented. Stroke workup with MRI scan and echo ordered. speech consult. Will start him on aspirin. Closely monitor in the tele floor. CT head and CTA head and neck unremarkable. MRI brain - No acute intracranial findings. No intracranial mass or pathologic enhancement. 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 Moderate small vessel disease. Echo -LV is normal in size. LV systolic function is normal. EF 55 to 60%. LV wall motion is normal. RV systolic function is normal. LA size is normal. RA size is normal. The interatrial septum is intact with no evidence of ASD. No interatrial shunt noted. Neurology consulted - would recommend normotension, BP goal - systolic blood pressure < 140, diastolic blood pressure < 90. - Agree with starting aspirin 81 mg daily. - MRI brain reviewed and Negative for acute ischemic stroke. - Ataxia likely could be multifactorial, although exacerbated by hyponatremia. - Intention tremor and ataxic gait can be seen in chronic alcohol use. 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 Recommend avoiding alcohol and PT/OT as outpatient. Follow up with neurology (Dr. Johnson) in the spring for re- evaluation of gait. PT, OT - recommends to return home 2. Hyponatremia -could be contributing to his symptoms. His sodium was 127 on 09/05/2021 and 124 on 09/24/2021 and on admission is 119. He was recently started on cyclosporine for his atopic dermatitis by dermatology. Received 1 liter of fluids in the ER. Check the BMP now and also q. 4 hours. Check urine osmolality, serum osmolality, and urine sodium levels. repeat labs showed Na 121. Ordered 100ml of hypertonic saline. Consult nephrology and further fluids as per nephrology. Closely monitor in the tele floor. Sodium level improved. Per nephrology continue to hold HCTZ. Continue on amlodipine and losartan. 3. Hypertension Continues amlodipine, losartan withholding parameters. Holding hydrochlorothiazide for hyponatremia. 4. Diabetes holding his Metformin, placed on insulin sliding scale. 5. History of atopic dermatitis Currently is continuing his triamcinolone and cyclosporin. Follows with dermatology. DVT ppx: SCDs DISPOSITION: tele floor.Expect to discharge home and follow with family doctor. Code: Full Admission and Anticipated Discharge Date Admission Date: September 26, 2021 Subjective Patient seen in follow-up of imbalance, strokelike symptoms, hyponatremia Currently he is sitting up in bed, in no acute distress. Patient is alert oriented and he is able to answer questions appropriately. He is feeling much better, and even worked with physical therapy today, which recommends return home. Denies headache, chest pain, shortness of breath, abdominal pain, nausea or vomiting Current Na 129 PT recommends return home Review of Systems Review of Systems: All systems reviewed & are unremarkable except as noted in Subjective Physical Exam Physical Exam: GENERAL: The patient is of moderate build, not in acute distress. HEENT: NC/AT. EOMI, PERRL. Oral mucosa moist. NECK: No JVD, no neck masses. CARDIOVASCULAR: S1 and S2 heard. Regular rate and rhythm. No murmur, no gallop. RESPIRATORY: Normal AP diameter. No accessory muscle use. No wheezing, no crackles. ABDOMEN: Soft, bowel sounds present, nontender, no distention. NEURO: Alert and oriented x3. No facial droop. Speech is clear. Power 5/5 in all extremities. Sensation is intact. No pronator drift. Coordination of movements normal. EXTREMITIES: Mild pedal edema present, no erythema seen. Results & Data Results & Data ([facility]) Vital Signs (Past 12 Hours) Vital Signs Temp Pulse Pulse Resp BP Pulse Ox 09/28/21 08:00 36.5 C 77 82 18 151/86 H 96 09/28/21 06:39 81 09/28/21 03:30 36.4 C L 75 18 128/69 98 09/27/21 23:26 36.6 C 80 18 119/68 95 Laboratory Results 09/28/21 09/28/21 09/28/21 Range/Units 08:07 08:07 07:43 WBC 6.53 (4.8-10.8) K/uL RBC 4.06 L (4.7-6.1) M/uL Hgb 14.2 (14.0-18.0) g/dL Hct 40.7 L (42-52) % MCV 100.2 H (80-100) fL MCH 35.0 H (25-34) pg MCHC 34.9 (32-36) g/dL RDW Std Deviation 44.2 (36.4-46.3) fL RDW Coeff of Scott 12.2 (11.5-14.5) % Plt Count 299 (130-400) K/uL MPV 7.7 (7.4-10.4) fL Immature Gran % (Auto) 0.2 % Neut % (Auto) 45.2 % Lymph % (Auto) 31.5 % [place] % (Auto) 20.5 % Eos % (Auto) 2.0 % Baso % (Auto) 0.6 % Neut # (Auto) 2.95 (1.4-6.5) K/uL Lymph # (Auto) 2.06 (1.2-3.4) K/uL [place] # (Auto) 1.34 H (0.11-0.59) K/uL Eos # (Auto) 0.13 (0-0.5) K/uL Baso # (Auto) 0.04 (0-0.2) K/uL Immature Gran # (Auto) 0.01 (0.00-0.02) K/uL Sodium 129 L (136-145) mmol/L Potassium 4.0 (3.5-5.1) mmol/L Chloride 95 L (98-107) mmol/L Carbon Dioxide 24 (21-32) mmol/L Anion Gap 10.0 (3-11) BUN 15 (7-18) mg/dl Creatinine 0.80 (0.6-1.4) mg/dl Est Cr Clr Drug Dosing 101.7 ml/min Est GFR ( Amer) 103.4 ml/min Est GFR (Non-Af Amer) 89.2 ml/min BUN/Creatinine Ratio 19.1 (10-20) Glucose 139 H (70-99) mg/dl POC Glucose 137 H (70-99) mg/dl Estimat Average Glucose mg/dl Hemoglobin A1c (4.5-5.6) % Calcium 9.3 (8.5-10.1) mg/dl 09/27/21 09/27/21 09/27/21 Range/Units 20:42 20:27 16:25 WBC (4.8-10.8) K/uL RBC (4.7-6.1) M/uL Hgb (14.0-18.0) g/dL Hct (42-52) % MCV (80-100) fL MCH (25-34) pg MCHC (32-36) g/dL RDW Std Deviation (36.4-46.3) fL RDW Coeff of Scott (11.5-14.5) % Plt Count (130-400) K/uL MPV (7.4-10.4) fL Immature Gran % (Auto) % Neut % (Auto) % Lymph % (Auto) % [place] % (Auto) % Eos % (Auto) % Baso % (Auto) % Neut # (Auto) (1.4-6.5) K/uL Lymph # (Auto) (1.2-3.4) K/uL [place] # (Auto) (0.11-0.59) K/uL Eos # (Auto) (0-0.5) K/uL Baso # (Auto) (0-0.2) K/uL Immature Gran # (Auto) (0.00-0.02) K/uL Sodium 128 L (136-145) mmol/L Potassium 4.1 (3.5-5.1) mmol/L Chloride 95 L (98-107) mmol/L Carbon Dioxide 25 (21-32) mmol/L Anion Gap 8.0 (3-11) BUN 17 (7-18) mg/dl Creatinine 0.94 (0.6-1.4) mg/dl Est Cr Clr Drug Dosing 86.6 ml/min Est GFR ( Amer) 93.5 ml/min Est GFR (Non-Af Amer) 80.7 ml/min BUN/Creatinine Ratio 17.6 (10-20) Glucose 117 H (70-99) mg/dl POC Glucose 131 H 151 H (70-99) mg/dl Estimat Average Glucose mg/dl Hemoglobin A1c (4.5-5.6) % Calcium 8.3 L (8.5-10.1) mg/dl 09/27/21 09/27/21 09/27/21 Range/Units 16:16 13:06 11:23 WBC (4.8-10.8) K/uL RBC (4.7-6.1) M/uL Hgb (14.0-18.0) g/dL Hct (42-52) % MCV (80-100) fL MCH (25-34) pg MCHC (32-36) g/dL RDW Std Deviation (36.4-46.3) fL RDW Coeff of Scott (11.5-14.5) % Plt Count (130-400) K/uL MPV (7.4-10.4) fL Immature Gran % (Auto) % Neut % (Auto) % Lymph % (Auto) % [place] % (Auto) % Eos % (Auto) % Baso % (Auto) % Neut # (Auto) (1.4-6.5) K/uL Lymph # (Auto) (1.2-3.4) K/uL [place] # (Auto) (0.11-0.59) K/uL Eos # (Auto) (0-0.5) K/uL Baso # (Auto) (0-0.2) K/uL Immature Gran # (Auto) (0.00-0.02) K/uL Sodium 125 L 125 L (136-145) mmol/L Potassium 4.0 4.2 (3.5-5.1) mmol/L Chloride 93 L 93 L (98-107) mmol/L Carbon Dioxide 24 27 (21-32) mmol/L Anion Gap 8.0 5.0 (3-11) BUN 12 12 (7-18) mg/dl Creatinine 0.82 0.89 (0.6-1.4) mg/dl Est Cr Clr Drug Dosing 99.3 91.5 ml/min Est GFR ( Amer) 102.4 99.0 ml/min Est GFR (Non-Af Amer) 88.3 85.4 ml/min BUN/Creatinine Ratio 14.9 13.8 (10-20) Glucose 153 H 145 H (70-99) mg/dl POC Glucose 118 H (70-99) mg/dl Estimat Average Glucose mg/dl Hemoglobin A1c (4.5-5.6) % Calcium 9.1 9.1 (8.5-10.1) mg/dl 11/25/21 11/25/21 Range/Units 09:44 04:48 WBC (4.8-10.8) K/uL RBC (4.7-6.1) M/uL Hgb (14.0-18.0) g/dL Hct (42-52) % MCV (80-100) fL MCH (25-34) pg MCHC (32-36) g/dL RDW Std Deviation (36.4-46.3) fL RDW Coeff of Scott (11.5-14.5) % Plt Count (130-400) K/uL MPV (7.4-10.4) fL Immature Gran % (Auto) % Neut % (Auto) % Lymph % (Auto) % [place] % (Auto) % Eos % (Auto) % Baso % (Auto) % Neut # (Auto) (1.4-6.5) K/uL Lymph # (Auto) (1.2-3.4) K/uL [place] # (Auto) (0.11-0.59) K/uL Eos # (Auto) (0-0.5) K/uL Baso # (Auto) (0-0.2) K/uL Immature Gran # (Auto) (0.00-0.02) K/uL Sodium 124 L (136-145) mmol/L Potassium 4.0 (3.5-5.1) mmol/L Chloride 92 L (98-107) mmol/L Carbon Dioxide 25 (21-32) mmol/L Anion Gap 7.0 (3-11) BUN 10 (7-18) mg/dl Creatinine 0.69 (0.6-1.4) mg/dl Est Cr Clr Drug Dosing 118.0 ml/min Est GFR ( Amer) 109.9 ml/min Est GFR (Non-Af Amer) 94.8 ml/min BUN/Creatinine Ratio 14.7 (10-20) Glucose 157 H (70-99) mg/dl POC Glucose (70-99) mg/dl Estimat Average Glucose 140 mg/dl Hemoglobin A1c 6.5 H (4.5-5.6) % Calcium 9.0 (8.5-10.1) mg/dl Medications Administered Current Inpatient Medications Acetaminophen (Acetaminophen 325 Mg Tab) 650 mg PO Q4H PRN PRN Reason: Pain or Fever Stop: 10/27/21 00:26 Amlodipine Besylate (Amlodipine Besylate 5 Mg Tab) 5 mg PO DAILY [facility] Stop: 10/27/21 08:59 Last Admin: 09/28/21 08:07 Dose: 5 mg Documented by: Aspirin (Aspirin 81 Mg Ectab) 81 mg PO QAM [facility] Stop: 10/27/21 09:14 Last Admin: 09/28/21 08:07 Dose: 81 mg Documented by: Cyclosporine (Cyclosporine 100 Mg Cap) 100 mg PO TID [facility] Stop: 10/27/21 08:59 Last Admin: 09/28/21 08:08 Dose: 100 mg Documented by: Dextrose (Dextrose 50% 50 Ml Syringe) 25 - 50 ml IV UD PRN; Protocol PRN Reason: Hypoglycemia Protocol Stop: 10/27/21 00:59 Glucagon (Glucagon For Inj 1 Mg Vial) 1 mg IM UD PRN; Protocol PRN Reason: Hypoglycemia Protocol Stop: 10/27/21 00:59 Glucose (Glucose 40% Gel 15 Gm Tube) 15 - 30 gm PO UD PRN; Protocol PRN Reason: Hypoglycemia Protocol Stop: 10/27/21 00:59 Glucose (Glucose 10 Tabs/Tube) 4 - 8 tabs PO UD PRN; Protocol PRN Reason: Hypoglycemia Protocol Stop: 10/27/21 00:59 Insulin Aspart (Insulin Aspart 100 Units/Ml 3 Ml Pen) 0 units SC ACHS [facility] Stop: 10/27/21 07:29 Last Admin: 09/28/21 08:17 Dose: 2 units Documented by: Losartan Potassium (Losartan Potassium 50 Mg Tab) 100 mg PO DAILY [facility] Stop: 10/27/21 08:59 Last Admin: 09/28/21 08:07 Dose: 100 mg Documented by: Magnesium Oxide (Magnesium Oxide 400 Mg Tab) 400 mg PO QAM [facility] Stop: 10/27/21 13:29 Last Admin: 09/28/21 08:08 Dose: 400 mg Documented by: Miscellaneous (Carbohydrates For Hypoglycemia ) 15 - 30 gm PO UD PRN PRN Reason: Hypoglycemia Treatment Stop: 10/27/21 00:59 Miscellaneous (Remove Nicoderm Patch) 1 ea N/A DAILY@0859 [facility] Stop: 10/28/21 08:58 Miscellaneous Information (Pharmacist Discharge Med Rec Consult) 1 ea N/A UD PRN PRN Reason: Consult Stop: 10/27/21 00:26 Nicotine (Nicotine 14 Mg/24 Hr Patch) 14 mg TD QAM [facility] Stop: 10/27/21 17:29 Last Admin: 09/28/21 08:07 Dose: 14 mg Documented by: Nitroglycerin (Nitroglycerin Sl 0.4 Mg/Tab Tab) 0.4 mg SL UD PRN PRN Reason: Chest Pain Stop: 10/27/21 00:26 Polyethylene Glycol (Polyethylene (Miralax) 17 Gm Pack) 17 gm PO DAILY PRN PRN Reason: Constipation Stop: 10/27/21 00:26 Triamcinolone Acetonide (Triamcinolone Acet 0.1% Cr 15 Gm Tube) 0.1 appln TOP BID [facility] Stop: 10/27/21 08:59 Last Admin: 09/27/21 20:21 Dose: Not Given Documented by:
[2021-09-28] MEDS: TRIAMCINOLONE ACET 0.1% CR 15 GM TUBE TOP SCH ×2 (10:50→20:01)
--- NOTE | 2021-09-28 11:04 | Nephrology Progress Note ---
Date of Service September 28, 2021 Assessment & Plan (1) Chronic hyponatremia: Plan: Hyponatremia present since at least April 2020 with serum sodium generally in the high 120s. Worsened recently : sodium 127 on September 05 and 124 on September 24; 119 on presentation. euvolemic hyponatremia > ? SIADH from thiazide or low solute diet w/ EtOH or ibuprofen or multifactorial >>improving with simply stopping TZ diuretic so far appropriately -goal sNa is 128 by labs this am and he is at 129, appropriate >> goal sNa for tomrrow am is 135 if he can reach it List hydrochlorothiazide as a medical intolerance/allergy please -lasix prn for now cont daily Mag-Ox Continue 1.2 L fluid limit for now and bmp [id number] NEPHRO DISCHARGE RECOMMENDATIONS -d/c on 1.5L fluid limit -encourage less EtOH and more protein intake; dietary sodium in moderation, <3-4 gm daily -ask PCP to list hctz as med intolerance d/t hyponatremia -f/u w/ any nephro provider in [facility] in 2-4 wks; have that provider's nurse order weekly bmp, urine osms, serum osms, rd urine sodium -increase amlodipine to 10 mg daily; contact PCP or nephro if LE edema (2) Hypertension: Plan: Goal systolic pressure less than 140: He has generally been slightly hypertensive with systolics in the 150s and intermittent tachycardia in the 90s on presentation, improved overnight and yesterday PM -monitor for possible EtOH withdrawal -would keep on monitored bed -continue amlodipine and losartan current doses -could use hydralazine prn; he may also end up with standing lasix but none for now Admission and Anticipated Discharge Date Admission Date: September 26, 2021 Subjective weakness, ambulatory concerns he endorsed on presentation are markedly better; no sob, no no/v adn no malaise Review of Systems Review of Systems: All systems reviewed & are unremarkable except as noted in Subjective Physical Exam Constitutional: well developed and well nourished Eyes: EOM intact bilaterally ENMT: Ears: no external ear abnormality Nose: no external nose abnormality Mouth: + dry oral mucous membranes Neck: no nuchal rigidity Respiratory: normal respiratory effort Auscultation: + diminished lung sounds Cardiovascular: Rate/Rhythm: regular rate and regular rhythm (frequent dropped beats w/ PVCs on monitor) Extremities: no edema Gastrointestinal (Abdomen): Inspection/Auscultation: normal bowel sounds Percussion/Palpation: abdomen soft; abdomen nontender Musculoskeletal: Extremities: strength 5/5 throughout (including BLE) Skin: no rashes, warm and dry + erythema (plethoric fascies) Psychiatric: Orientation: alert and oriented x 3 Results & Data ([facility]) Vital Signs (Past 12 Hours) Vital Signs Temp Pulse Pulse Resp BP Pulse Ox 09/28/21 08:00 36.5 C 77 82 18 151/86 H 96 09/28/21 06:39 81 09/28/21 03:30 36.4 C L 75 18 128/69 98 09/27/21 23:26 36.6 C 80 18 119/68 95 Laboratory Results 09/28/21 08:07 09/28/21 08:07
[2021-09-29 07:23] LABS: Basophils # (auto) 0.03 K/uL (0-0.2); Basophils % (auto) 0.5 %; Eosinophils # (auto) 0.13 K/uL (0-0.5); Eosinophils % (auto) 2.2 %; Hematocrit (blood only) 37.2 % (42-52); Hemoglobin 13.1 g/dL (14.0-18.0); Immature Granulocytes # (auto) 0.01 K/uL (0.00-0.02); Immature Granulocytes % (auto) 0.2 %; Lymphocytes # (auto) 1.84 K/uL (1.2-3.4); Lymphocytes % (auto) 31.5 %; Mean Corpuscular Hemoglobin 35.3 pg (25-34); Mean Corpuscular Hgb Conc 35.2 g/dL (32-36); Mean Corpuscular Volume 100.3 fL (80-100); Mean Platelet Volume 7.6 fL (7.4-10.4); Monocytes # (auto) 1.15 K/uL (0.11-0.59); Monocytes % (auto) 19.7 %; Neutrophils # (auto) 2.68 K/uL (1.4-6.5); Neutrophils % (auto) 45.9 %; Platelet Count 266 K/uL (130-400); RDW Coefficient of Variation 12.1 % (11.5-14.5); RDW Standard Deviation 44.2 fL (36.4-46.3); Red Blood Count 3.71 M/uL (4.7-6.1); White Blood Count 5.84 K/uL (4.8-10.8)
[2021-09-29 07:41] LABS: BUN Creatinine Ratio 20.7 (10-20); Calcium 8.8 mg/dl (8.5-10.1); Creatinine Clr Calc Pharmacy 99.1 ml/min; Est GFR (African American) 102.9 ml/min; Est GFR (Non-African American) 88.8 ml/min; Phosphorus 3.3 mg/dl (2.5-4.9); Potassium 3.9 mmol/L (3.5-5.1)
[2021-09-29 07:59] VITALS: TEMP 97.9; O2SAT 95
--- NOTE | 2021-09-29 08:08 | Hospitalist Progress Note ---
Date of Service September 29, 2021 Assessment & Plan (1) Slurred speech: (2) Acute hyponatremia: (3) Stroke-like symptoms: (4) Chronic hyponatremia: (5) Weakness: Plan: Pt is 71-year-old male who presents with stroke-like symptoms and also found to have hyponatremia. 1. Stroke-like symptoms with imbalance going on for the last couple of weeks and today questionable slurred speech. Initial workup was negative. On admission, the patient's speech is clear, pt is alert and oriented. Stroke workup with MRI scan and echo ordered. speech consult. Will start him on aspirin. Closely monitor in the tele floor. CT head and CTA head and neck unremarkable. MRI brain - No acute intracranial findings. No intracranial mass or pathologic enhancement. 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 Moderate small vessel disease. Echo -LV is normal in size. LV systolic function is normal. EF 55 to 60%. LV wall motion is normal. RV systolic function is normal. LA size is normal. RA size is normal. The interatrial septum is intact with no evidence of ASD. No interatrial shunt noted. Neurology consulted - would recommend normotension, BP goal - systolic blood pressure < 140, diastolic blood pressure < 90. - Agree with starting aspirin 81 mg daily. - MRI brain reviewed and Negative for acute ischemic stroke. - Ataxia likely could be multifactorial, although exacerbated by hyponatremia. - Intention tremor and ataxic gait can be seen in chronic alcohol use. 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 Recommend avoiding alcohol and PT/OT as outpatient. Follow up with neurology (Dr. Johnson) in the spring for re- evaluation of gait. PT, OT - recommends to return home 2. Hyponatremia -could be contributing to his symptoms. His sodium was 127 on 09/05/2021 and 124 on 09/24/2021 and on admission is 119. He was recently started on cyclosporine for his atopic dermatitis by dermatology. Received 1 liter of fluids in the ER. Check the BMP now and also q. 4 hours. Check urine osmolality, serum osmolality, and urine sodium levels. repeat labs showed Na 121. Ordered 100ml of hypertonic saline. Consult nephrology and further fluids as per nephrology. Closely monitor in the tele floor. Current Na 132 Sodium level improved. Per nephrology STOP HCTZ (list as allergy). Continue on amlodipine and losartan. 1.5L fluid limit Recheck sodium level/ BMP by Friday (within next 4 days) Follow up w/ any nephro provider in [facility] in 2-4 wks; have that provider's nurse order weekly bmp, urine osms, serum osms, rd urine sodium Increase amlodipine to 10 mg daily 3. Hypertension Continues amlodipine, losartan withholding parameters. Holding hydrochlorothiazide for hyponatremia. Increase amlodipine to 10 mg daily. 4. Diabetes holding his Metformin, placed on insulin sliding scale. Resume home meds on discharge 5. History of atopic dermatitis Currently is continuing his triamcinolone and cyclosporin. Follows with dermatology. DVT ppx: SCDs DISPOSITION: tele floor.Expect to discharge home and follow with family doctor. Code: Full Admission and Anticipated Discharge Date Admission Date: September 26, 2021 Subjective Patient seen in follow-up of imbalance, strokelike symptoms, hyponatremia Currently he is sitting up in bed, in no acute distress. Patient is alert oriented and he is able to answer questions appropriately. He is feeling well and back to normal. Worked with physical therapy yesterday, which recommends return home. Denies headache, chest pain, shortness of breath, abdominal pain, nausea or vomiting Current Na 132 PT recommends return home Review of Systems Review of Systems: All systems reviewed & are unremarkable except as noted in Subjective Physical Exam Physical Exam: GENERAL: The patient is of moderate build, not in acute distress. HEENT: NC/AT. EOMI, PERRL. Oral mucosa moist. NECK: No JVD, no neck masses. CARDIOVASCULAR: S1 and S2 heard. Regular rate and rhythm. No murmur, no gallop. RESPIRATORY: Normal AP diameter. No accessory muscle use. No wheezing, no crackles. ABDOMEN: Soft, bowel sounds present, nontender, no distention. NEURO: Alert and oriented x3. No facial droop. Speech is clear. Power 5/5 in all extremities. Sensation is intact. No pronator drift. Coordination of movements normal. EXTREMITIES: Mild pedal edema present, no erythema seen. Results & Data Results & Data ([facility]) Vital Signs (Past 12 Hours) Vital Signs Temp Pulse Pulse Resp BP BP Pulse Ox 09/29/21 08:05 71 09/29/21 07:58 36.6 C 78 20 145/86 H 95 09/29/21 04:00 36.5 C 75 16 145/82 H 97 09/29/21 00:00 85 09/28/21 22:35 36.6 C 79 16 151/84 H 98 09/28/21 20:11 36.5 C 80 16 146/89 H 96 Laboratory Results 09/29/21 09/29/21 09/29/21 Range/Units 07:42 07:04 07:04 WBC 5.84 (4.8-10.8) K/uL RBC 3.71 L (4.7-6.1) M/uL Hgb 13.1 L (14.0-18.0) g/dL Hct 37.2 L (42-52) % MCV 100.3 H (80-100) fL MCH 35.3 H (25-34) pg MCHC 35.2 (32-36) g/dL RDW Std Deviation 44.2 (36.4-46.3) fL RDW Coeff of Scott 12.1 (11.5-14.5) % Plt Count 266 (130-400) K/uL MPV 7.6 (7.4-10.4) fL Immature Gran % (Auto) 0.2 % Neut % (Auto) 45.9 % Lymph % (Auto) 31.5 % [place] % (Auto) 19.7 % Eos % (Auto) 2.2 % Baso % (Auto) 0.5 % Neut # (Auto) 2.68 (1.4-6.5) K/uL Lymph # (Auto) 1.84 (1.2-3.4) K/uL [place] # (Auto) 1.15 H (0.11-0.59) K/uL Eos # (Auto) 0.13 (0-0.5) K/uL Baso # (Auto) 0.03 (0-0.2) K/uL Immature Gran # (Auto) 0.01 (0.00-0.02) K/uL Sodium 132 L (136-145) mmol/L Potassium 3.9 (3.5-5.1) mmol/L Chloride 98 (98-107) mmol/L Carbon Dioxide 24 (21-32) mmol/L Anion Gap 10.0 (3-11) BUN 17 (7-18) mg/dl Creatinine 0.81 (0.6-1.4) mg/dl Est Cr Clr Drug Dosing 99.1 ml/min Est GFR ( Amer) 102.9 ml/min Est GFR (Non-Af Amer) 88.8 ml/min BUN/Creatinine Ratio 20.7 H (10-20) Glucose 138 H (70-99) mg/dl POC Glucose 166 H (70-99) mg/dl Calcium 8.8 (8.5-10.1) mg/dl Phosphorus 3.3 (2.5-4.9) mg/dl Magnesium 2.0 (1.8-2.4) mg/dl 09/28/21 09/28/21 09/28/21 Range/Units 19:57 16:22 11:21 WBC (4.8-10.8) K/uL RBC (4.7-6.1) M/uL Hgb (14.0-18.0) g/dL Hct (42-52) % MCV (80-100) fL MCH (25-34) pg MCHC (32-36) g/dL RDW Std Deviation (36.4-46.3) fL RDW Coeff of [place] (11.5-14.5) % Plt Count (130-400) K/uL MPV (7.4-10.4) fL Immature Gran % (Auto) % Neut % (Auto) % Lymph % (Auto) % [place] % (Auto) % Eos % (Auto) % Baso % (Auto) % Neut # (Auto) (1.4-6.5) K/uL Lymph # (Auto) (1.2-3.4) K/uL [place] # (Auto) (0.11-0.59) K/uL Eos # (Auto) (0-0.5) K/uL Baso # (Auto) (0-0.2) K/uL Immature Gran # (Auto) (0.00-0.02) K/uL Sodium (136-145) mmol/L Potassium (3.5-5.1) mmol/L Chloride (98-107) mmol/L Carbon Dioxide (21-32) mmol/L Anion Gap (3-11) BUN (7-18) mg/dl Creatinine (0.6-1.4) mg/dl Est Cr Clr Drug Dosing ml/min Est GFR ( Amer) ml/min Est GFR (Non-Af Amer) ml/min BUN/Creatinine Ratio (10-20) Glucose (70-99) mg/dl POC Glucose 139 H 149 H 113 H (70-99) mg/dl Calcium (8.5-10.1) mg/dl Phosphorus (2.5-4.9) mg/dl Magnesium (1.8-2.4) mg/dl 09/28/21 09/28/21 Range/Units 08:07 08:07 WBC 6.53 (4.8-10.8) K/uL RBC 4.06 L (4.7-6.1) M/uL Hgb 14.2 (14.0-18.0) g/dL Hct 40.7 L (42-52) % MCV 100.2 H (80-100) fL MCH 35.0 H (25-34) pg MCHC 34.9 (32-36) g/dL RDW Std Deviation 44.2 (36.4-46.3) fL RDW Coeff of [place] 12.2 (11.5-14.5) % Plt Count 299 (130-400) K/uL MPV 7.7 (7.4-10.4) fL Immature Gran % (Auto) 0.2 % Neut % (Auto) 45.2 % Lymph % (Auto) 31.5 % [place] % (Auto) 20.5 % Eos % (Auto) 2.0 % Baso % (Auto) 0.6 % Neut # (Auto) 2.95 (1.4-6.5) K/uL Lymph # (Auto) 2.06 (1.2-3.4) K/uL [place] # (Auto) 1.34 H (0.11-0.59) K/uL Eos # (Auto) 0.13 (0-0.5) K/uL Baso # (Auto) 0.04 (0-0.2) K/uL Immature Gran # (Auto) 0.01 (0.00-0.02) K/uL Sodium 129 L (136-145) mmol/L Potassium 4.0 (3.5-5.1) mmol/L Chloride 95 L (98-107) mmol/L Carbon Dioxide 24 (21-32) mmol/L Anion Gap 10.0 (3-11) BUN 15 (7-18) mg/dl Creatinine 0.80 (0.6-1.4) mg/dl Est Cr Clr Drug Dosing 101.7 ml/min Est GFR ( Amer) 103.4 ml/min Est GFR (Non-Af Amer) 89.2 ml/min BUN/Creatinine Ratio 19.1 (10-20) Glucose 139 H (70-99) mg/dl POC Glucose (70-99) mg/dl Calcium 9.3 (8.5-10.1) mg/dl Phosphorus (2.5-4.9) mg/dl Magnesium (1.8-2.4) mg/dl Medications Administered Current Inpatient Medications Acetaminophen (Acetaminophen 325 Mg Tab) 650 mg PO Q4H PRN PRN Reason: Pain or Fever Stop: 10/27/21 00:26 Amlodipine Besylate (Amlodipine Besylate 5 Mg Tab) 5 mg PO DAILY MARIA Stop: 10/27/21 08:59 Last Admin: 09/28/21 08:07 Dose: 5 mg Documented by: Aspirin (Aspirin 81 Mg Ectab) 81 mg PO QAM MARIA Stop: 10/27/21 09:14 Last Admin: 09/28/21 08:07 Dose: 81 mg Documented by: Cyclosporine (Cyclosporine 100 Mg Cap) 100 mg PO TID MARIA Stop: 10/27/21 08:59 Last Admin: 09/28/21 20:02 Dose: 100 mg Documented by: Dextrose (Dextrose 50% 50 Ml Syringe) 25 - 50 ml IV UD PRN; Protocol PRN Reason: Hypoglycemia Protocol Stop: 10/27/21 00:59 Glucagon (Glucagon For Inj 1 Mg Vial) 1 mg IM UD PRN; Protocol PRN Reason: Hypoglycemia Protocol Stop: 10/27/21 00:59 Glucose (Glucose 40% Gel 15 Gm Tube) 15 - 30 gm PO UD PRN; Protocol PRN Reason: Hypoglycemia Protocol Stop: 10/27/21 00:59 Glucose (Glucose 10 Tabs/Tube) 4 - 8 tabs PO UD PRN; Protocol PRN Reason: Hypoglycemia Protocol Stop: 10/27/21 00:59 Insulin Aspart (Insulin Aspart 100 Units/Ml 3 Ml Pen) 0 units SC ACHS MARIA Stop: 10/27/21 07:29 Last Admin: 09/28/21 20:02 Dose: Not Given Documented by: Losartan Potassium (Losartan Potassium 50 Mg Tab) 100 mg PO DAILY MARIA Stop: 12/25/21 08:59 Last Admin: 09/28/21 08:07 Dose: 100 mg Documented by: Magnesium Oxide (Magnesium Oxide 400 Mg Tab) 400 mg PO QAM [facility] Stop: 10/27/21 13:29 Last Admin: 09/28/21 08:08 Dose: 400 mg Documented by: Miscellaneous (Carbohydrates For Hypoglycemia ) 15 - 30 gm PO UD PRN PRN Reason: Hypoglycemia Treatment Stop: 10/27/21 00:59 Miscellaneous (Remove Nicoderm Patch) 1 ea N/A DAILY@59 [facility] Stop: 10/28/21 08:58 Last Admin: 09/28/21 10:48 Dose: Not Given Documented by: Miscellaneous Information (Pharmacist Discharge Med Rec Consult) 1 ea N/A UD PRN PRN Reason: Consult Stop: 10/27/21 00:26 Nicotine (Nicotine 14 Mg/24 Hr Patch) 14 mg TD QAM [facility] Stop: 10/27/21 17:29 Last Admin: 09/28/21 08:07 Dose: 14 mg Documented by: Nitroglycerin (Nitroglycerin Sl 0.4 Mg/Tab Tab) 0.4 mg SL UD PRN PRN Reason: Chest Pain Stop: 10/27/21 00:26 Polyethylene Glycol (Polyethylene (Miralax) 17 Gm Pack) 17 gm PO DAILY PRN PRN Reason: Constipation Stop: 10/27/21 00:26 Triamcinolone Acetonide (Triamcinolone Acet 0.1% Cr 15 Gm Tube) 0.1 appln TOP BID [facility] Stop: 10/27/21 08:59 Last Admin: 09/28/21 20:01 Dose: 0.1 appln Documented by:
[2021-09-29] MEDS: LOSARTAN POTASSIUM 50 MG TAB PO SCH (08:20)
[2021-09-29] MEDS: ASPIRIN 81 MG ECTAB PO SCH (08:20)
[2021-09-29] MEDS: amLODIPine BESYLATE 5 MG TAB PO SCH (08:20)
[2021-09-29] MEDS: cycloSPORINE 100 MG CAP PO SCH (08:20)
[2021-09-29] MEDS: MAGNESIUM OXIDE 400 MG TAB PO SCH (08:20)
[2021-09-29] MEDS: NICOTINE 14 MG/24 HR PATCH TD SCH (08:21)
[2021-09-29] MEDS: TRIAMCINOLONE ACET 0.1% CR 15 GM TUBE TOP SCH (08:23)
[2021-09-29] MEDS: INSULIN ASPART 100 UNITS/ML 3 ML PEN SC SCH (08:26)
[2021-09-29] MEDS ORDERED: STROKE PATIENT DISCHARGE STA (10:04)
[2021-09-29 10:12] VITALS: BP 145/82; PULSE 78
--- NOTE | 2021-09-29 10:25 | Discharge Summary ---
Date of Service September 29, 2021 Admission HPI Per Admitting Provider A 71-year-old male with past medical history significant for diabetes, hypertension, obstructive sleep apnea, history of ascending aortic enlargement, history of squamous cell carcinoma, history of malignant melanoma of skin, who presents with imbalance and questionable slurred speech, and found to have hyponatremia. The patient seems to be having atopic dermatitis and recently following with dermatology. He is on triamcinolone cream and also was recently started on cyclosporine tablets. Dermatology checked his labs and found to be a sodium of 124 on 09/24/2021 and notified to the patient. The patient was brought in here by because the last couple of weeks he is having some imbalance, but today it got worse and thought he might have some slurred speech. In the ER, initial imaging studies were unremarkable, but his sodium came down to 119. His sodium was 127 on 09/05/2021. The patient seems to be on hydrochlorothiazide. Currently, he is alert and oriented x3. Denies any headache. No blurred visions, no nausea, no vomiting, no chest pain or shortness of breath, no cough. His itching is better. No diarrhea, no constipation. Normal bladder movements. He is hemodynamically stable. Received fluids in the ER. Admission Exam Per Admitting Provider GENERAL: The patient is of moderate build, not in acute distress. VITAL SIGNS: Temperature 36.7, pulse 83, respiratory rate 16, blood pressure 157/88, oxygen 97% on room air. HEENT: Pupils equal, round, and reactive to light. Oral mucosa moist. NECK: No JVD, no neck masses. CARDIOVASCULAR: S1 and S2 heard. Regular rate and rhythm. No murmur, no gallop. RESPIRATORY SYSTEM: Normal AP diameter. No accessory muscle use. No wheezing, no crackles. ABDOMEN: Soft, bowel sounds present, nontender, no distention. CENTRAL NERVOUS SYSTEM: Alert and oriented x3. No facial droop. Speech is clear. Power 5/5 in all extremities. Sensation is intact. No pronator drift. Coordination of movements normal. EXTREMITIES: Mild pedal edema present, no erythema seen. Principal Diagnosis Strokelike symptoms/slurred speech Hyponatremia [place] Discharge Exam GENERAL: The patient is of moderate build, not in acute distress. HEENT: NC/AT. EOMI, PERRL. Oral mucosa moist. NECK: No JVD, no neck masses. CARDIOVASCULAR: S1 and S2 heard. Regular rate and rhythm. No murmur, no gallop. RESPIRATORY: Normal AP diameter. No accessory muscle use. No wheezing, no crackles. ABDOMEN: Soft, bowel sounds present, nontender, no distention. NEURO: Alert and oriented x3. No facial droop. Speech is clear. Power 5/5 in all extremities. Sensation is intact. No pronator drift. Coordination of movements normal. EXTREMITIES: Mild pedal edema present, no erythema seen. Discharge Data Consultations 09/26/21 21:32 ED Decision to Admit Stat 09/27/21 08:00 Consult Nephrology Routine Consult Neurology Routine Ordered Studies 09/26/21 19:02 CT angio head w con Urgent CT angio neck with con Urgent CT head/brain wo con Urgent Impression: No acute intracranial abnormality. Atrophy and microvascular ischemic changes. IMPRESSION: 1. No significant stenosis, occlusion, or aneurysm within the [place]. 2. No significant stenosis, occlusion, or dissection identified within the carotid or vertebral arteries. 09/27/21 00:27 MR brain wo/w con Routine IMPRESSION: 1. No acute intracranial findings. 2. No intracranial mass or pathologic enhancement. 3. 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 4. Moderate small vessel disease. Hospital Course (1) Slurred speech: (2) Acute hyponatremia: (3) Stroke-like symptoms: (4) Chronic hyponatremia: (5) Weakness: Pt is 71-year-old male who presents with stroke-like symptoms and also found to have hyponatremia. 1. Stroke-like symptoms with imbalance going on for the last couple of weeks and today questionable slurred speech. Initial workup was negative. On admission, the patient's speech is clear, pt is alert and oriented. Stroke workup with MRI scan and echo ordered. speech consult. Will start him on aspirin. Closely monitor in the tele floor. CT head and CTA head and neck unremarkable. MRI brain - No acute intracranial findings. No intracranial mass or pathologic enhancement. 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 Moderate small vessel disease. Echo -LV is normal in size. LV systolic function is normal. EF 55 to 60%. LV wall motion is normal. RV systolic function is normal. LA size is normal. RA size is normal. The interatrial septum is intact with no evidence of ASD. No interatrial shunt noted. Neurology consulted - would recommend normotension, BP goal - systolic blood pressure < 140, diastolic blood pressure < 90. - Agree with starting aspirin 81 mg daily. - MRI brain reviewed and Negative for acute ischemic stroke. - Ataxia likely could be multifactorial, although exacerbated by hyponatremia. - Intention tremor and ataxic gait can be seen in chronic alcohol use. 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 Recommend avoiding alcohol and PT/OT as outpatient. Follow up with neurology (Dr. Johnson) in the spring for re- evaluation of gait. PT, OT - recommends to return home 2. Hyponatremia -could be contributing to his symptoms. His sodium was 127 on 09/05/2021 and 124 on 09/24/2021 and on admission is 119. He was recently started on cyclosporine for his atopic dermatitis by dermatology. Received 1 liter of fluids in the ER. Check the BMP now and also q. 4 hours. Check urine osmolality, serum osmolality, and urine sodium levels. repeat labs showed Na 121. Ordered 100ml of hypertonic saline. Consult nephrology and further fluids as per nephrology. Closely monitor in the tele floor. Current Na 132 Sodium level improved. Per nephrology STOP HCTZ (list as allergy). Continue on amlodipine and losartan. 1.5L fluid limit Recheck sodium level/ BMP by Friday (within next 4 days) Follow up w/ any nephro provider in [facility] in 2-4 wks; have that provider's nurse order weekly bmp, urine osms, serum osms, rd urine sodium Increase amlodipine to 10 mg daily 3. Hypertension Continues amlodipine, losartan withholding parameters. Holding hydrochlorothiazide for hyponatremia. Increase amlodipine to 10 mg daily. 4. Diabetes holding his Metformin, placed on insulin sliding scale. Resume home meds on discharge 5. History of atopic dermatitis Currently is continuing his triamcinolone and cyclosporin. Follows with dermatology. DVT ppx: SCDs DISPOSITION: tele floor.Expect to discharge home and follow with family doctor. Code: Full Total Time Total Time Spent Total Time Spent (In Minutes): 40 Discharge Plan Discharge Items Patient Disposition: Home - Self-Care Reason For Visit: DIZZINESS Discharge Diagnosis: Strokelike symptoms/slurred speech Hyponatremia [place] Condition on Discharge: Fair Activity: Per Instructions section Non-emergency contact: Primary Care Provider Call non-emergency contact if: you have any medication questions and your symptoms worsen Follow-up/Referrals: Richie Shanks, [Primary Care Provider] - Diet: Carb Consistent or DM2 and Heart Healthy Fluids: 1500ml (6 cups) Diet Texture: Easy to Chew Addtl Attending Provider Instructions: Follow up with your primary care doctor, within 1 to 2 weeks. You will also need to follow-up with nephrology, and have your sodium checked. Your sodium level should be checked no later than Friday. It is recommended that you have diet with fluid restriction of 6 cups of fluid ( 1.5 L = 1,500mL ). Do not take hydrochlorothiazide anymore. Continue taking your other blood pressure medications - amlodipine and losartan. Increase amlodipine dose to 10 mg daily. Notify your primary care doctor or airplane pilot (kidney doctor), if you develop leg edema. Take magnesium oxide supplement. It is also recommended that you take aspirin daily. Also recommend to follow-up with neurology to further assess your gait. Lastly, it is recommended that you try to quit smoking or at least decrease your tobacco use. Nicotine patches were also sent to your pharmacy. You can also consider calling [employer], which is a free smoking cessation line. Pending Studies at Discharge: No Stand-Alone Forms: My [facility] [employer], Smoking Cessation Medications and DC Order Prescriptions: New nicotine 7 mg/24 hr Patch 24 Hour 14 mg transdermal QAM Qty: 7 RF: 0 aspirin 81 mg Tablet,Delayed Release (Dr/Ec) 81 mg PO QAM Qty: 30 RF: 0 magnesium oxide 400 mg (241.3 mg magnesium) Tablet 400 mg PO QAM Qty: 30 RF: 0 Continued metformin 1,000 mg tablet 1,000 mg PO BID RF: 0 cyclosporine modified 50 mg capsule 100 mg PO TID RF: 0 triamcinolone acetonide 0.1 % cream 0.1 applic TOPICAL BID RF: 0 losartan 100 mg tablet 100 mg PO DAILY RF: 0 Changed amlodipine 5 mg tablet 10 mg PO DAILY Qty: 30 RF: 0 Discontinued hydrochlorothiazide 25 mg tablet 25 mg PO DAILY RF: 0 Discharge Orders: Discharge Order (Routine); Ordered 09/29/21 Ordered By: Hugh Sutherland/Other Patient Handouts: A1C, Managing Type 2 Diabetes Admission Data Admit Date/Time: 09/26/21 23:21 Attending Provider: Hugh Shukla Admit Provider: James Pena Primary Care Provider: Richie Shanks Other Providers: James Pena ; Juliane Castrejon ; Evie Montanez
== END 2021-09-29 11:40 | disposition home or self-care (01) | DRG 641 ==
LOC: ED 18:08 → EDINP 23:21 → 2S 09-27 17:13